=== PATIENT | male | born 1945 | race Caucasian/White ===

== ENCOUNTER 2017-10-15 13:57 | Observation (INO) | payer MEDICARE ==
[2017-10-15] MEDS ORDERED: ASPIRIN 81 MG PO STA (14:13)
--- NOTE | 2017-10-15 14:13 | ED ---
Chest Pain HPI - General Chief Complaint: Chest Pain Stated Complaint: Chest pain Time Seen by Provider: 10/15/17 14:13 Source: patient Mode of arrival: wheelchair Limitations: no limitations - Related Data Home Medications Medication Instructions Recorded Confirmed Aspirin EC [Ecotrin Low Dose] 81 mg PO DAILY 10/15/17 10/15/17 Losartan [Cozaar] 25 mg PO DAILY 10/15/17 10/15/17 Metoprolol Tartrate [Lopressor] 25 mg PO DAILY 10/15/17 10/15/17 Nitroglycerin Sl Tabs [Nitrostat] 0.4 mg SUBLINGUAL Q5M PRN 10/15/17 10/15/17 Prasugrel [Effient] 10 mg PO DAILY 10/15/17 10/15/17 Rosuvastatin [Crestor] 20 mg PO DAILY 10/15/17 10/15/17 Allergies Allergy/AdvReac Type Severity Reaction Status Date / Time atorvastatin [From Lipitor] Allergy Unknown Verified 10/15/17 14:40 diphenhydramine HCl Allergy Unknown Verified 10/15/17 14:40 [From Benadryl] Penicillins Allergy Unknown Verified 10/15/17 14:40 Review of Systems ROS Statement: Those systems with pertinent positive or pertinent negative responses have been documented in the HPI. ROS Other: All systems not noted in ROS Statement are negative. EKG Findings - EKG Comments: EKG Findings:: Twelve-lead EKG shows ventricular rate 60 bpm, there are pacer spikes, the QRS Compazine normal, no ST elevation or depression, interpreted by me as atrial paced rhythm. Past Medical History Past Medical History: Coronary Artery Disease (CAD), GERD/Reflux History of Any Multi-Drug Resistant Organisms: None Reported Past Surgical History: Heart Catheterization, Heart Catheterization With Stent, Hernia Repair, Pacemaker Past Psychological History: No Psychological Hx Reported Smoking Status: Former smoker Past Alcohol Use History: Occasional Past Drug Use History: None Reported General Exam Limitations: no limitations Course Vital Signs 10/15/17 14:02 Temperature 97.9 F Pulse Rate 60 Respiratory 20 Rate Blood Pressure 148/68 O2 Sat by Pulse 95 Oximetry Chest Pain MDM - Core Measures AMI Core Measures Followed: Yes - MDM Patient presents with chest pain. His story is very concerning for acute coronary syndrome. He will be admitted to the hospital. I will consult cardiology. Disposition Clinical Impression: Chest pain Disposition: ADMITTED IP TO THIS HOSP Condition: Fair Instructions: Chest Pain (ED) Is patient prescribed a controlled substance at d/c from ED?: No Referrals: Yefri Frankel MD [Primary Care Provider] - 1-2 days Time of Disposition: 16:04
[2017-10-15 14:37] LABS: Basophils % (A) 0 %; Eosinophils # (A) 0.2 k/uL (0-0.7); Eosinophils % (A) 3 %; HCT 43.2 % (39.0-53.0); HGB 14.8 gm/dL (13.0-17.5); Lymphocytes # (A) 2.3 k/uL (1.0-4.8); Lymphocytes % (A) 38 %; MCH 29.9 pg (25.0-35.0); MCHC 34.3 g/dL (31.0-37.0); MCV 87.2 fL (80.0-100.0); Mean Platelet Volume 7.4; Monocytes # (A) 0.5 k/uL (0-1.0); Monocytes % (A) 8 %; Neutrophils # (A) 2.9 k/uL (1.3-7.7); Neutrophils % (A) 48 %; Platelet Count 151 k/uL (150-450); RBC 4.96 m/uL (4.30-5.90); RDW 12.5 % (11.5-15.5); WBC 6.1 k/uL (3.8-10.6)
[2017-10-15 14:50] LABS: ALT 39 U/L (21-72); AST 35 U/L (17-59); Albumin 4.4 g/dL (3.5-5.0); Alkaline Phosphatase 63 U/L (38-126); Anion Gap 13 mmol/L; Blood Urea Nitrogen 18 mg/dL (9-20); Carbon Dioxide 26 mmol/L (22-30); Chloride 105 mmol/L (98-107); Glucose 87 mg/dL (74-99); Lipase 110 U/L (23-300); Magnesium 1.8 mg/dL (1.6-2.3); Potassium 4.4 mmol/L (3.5-5.1); Sodium 144 mmol/L (137-145); Total Bilirubin 0.3 mg/dL (0.2-1.3); Total Protein 7.1 g/dL (6.3-8.2)
[2017-10-15 14:52] LABS: INR 1.1 (<1.2); Partial Thromboplastin Time 23.7 sec (22.0-30.0); Prothrombin Time 10.5 sec (9.0-12.0)
--- NOTE | 2017-10-15 14:55 | XR ---
EXAMINATION TYPE: XR chest 2V DATE OF EXAM: 10/15/2017 COMPARISON: NONE TECHNIQUE: PA and lateral views submitted. HISTORY: Chest pain FINDINGS: The lungs are clear and there is no pneumothorax, pleural effusion, or focal pneumonia. Cardiac dev ice seen with calcified granuloma left lower lobe. No overt failure. Arthropathy of the shoulders. Hy pertrophic and degenerative change spine. IMPRESSION: 1. No acute process.
[2017-10-15] MEDS ORDERED: TEMAZEPAM 15 MG CAP PO PRN (16:04)
[2017-10-15] MEDS ORDERED: NALOXONE 0.4 MG/ML 1 ML VIAL IV PRN (16:04)
[2017-10-15] MEDS ORDERED: traMADol 50 MG TAB PO PRN (16:04)
[2017-10-15] MEDS ORDERED: NITROGLYCERIN SL TABS 0.4 MG TAB SUBLINGUAL PRN (16:06)
[2017-10-15 16:24] VITALS: RESP 18
--- NOTE | 2017-10-15 18:51 | HP ---
HISTORY AND PHYSICAL CHIEF COMPLAINT: A 72-year-old white male with chest pain. HISTORY OF PRESENT ILLNESS: 72-year-old white male presents to the hospital with chest pain similar to prior chest pain he had while in the hospital with prior heart catheterizations with stents. He is admitted to rule out myocardial infarction. No tachypnea, no tachycardia. No hemoptysis. No significant shortness of breath. HOME MEDICINES: Include Cozaar 25 daily, Ecotrin 81 mg daily, Lopressor 25 daily, and Nitrostat 0.4 mg sublingual p.r.n., Effient 10 mg daily. Crestor 20 mg daily. ALLERGIES: LIPITOR, DIPHENHYDRAMINE, PENICILLIN. REVIEW OF SYSTEMS: Fourteen point review of systems negative except for mentioned in HPI. EKG sinus rhythm, no ST depression or elevation. PAST MEDICAL HISTORY: Coronary artery disease. GERD. He has heart catheterization with stents, pacemaker, former smoker. PHYSICAL EXAMINATION: Temp 97.9, pulse 60, respiratory 18 to 20, blood pressure 148/60 O2 95% on room air. Cardiovascular S1, S2. LUNGS: Transmitted upper airway sounds. Hematology negative Homans. Psych fair mood and affect. Neurologic: Alert and oriented x3. Psych fair mood affect. Vascular: Normal dorsalis pedis, posterior radial pulse. ASSESSMENT: 1. Atypical chest pain. 2. History of hypertension. 3. Dyslipidemia. 4. Gastroesophageal reflux disease. 5. Coronary artery disease. PLAN: Rule out myocardial infarction. Cardiology consult. Possible discharge. Home once cleared by Cardiology. Rule out . Rule out PE. Chest x-ray was negative. Check thyroids. Risk factor modifications ordered and home medicines will be continued. MMODL / IJN: [id number] /
[2017-10-15] MEDS: FAMOTIDINE 20 MG TAB PO SCH (19:53)
[2017-10-16] MEDS ORDERED: LOSARTAN 25 MG TAB PO SCH (09:00)
[2017-10-16] MEDS ORDERED: NON-FORMULARY DRUG (Rosuvastatin 20 MG) PO SCH (09:00)
[2017-10-16] MEDS ORDERED: ASPIRIN 81 MG PO SCH (09:00)
[2017-10-16] MEDS ORDERED: PRASUGREL 10 MG TAB PO SCH (09:00)
[2017-10-16] MEDS ORDERED: METOPROLOL TARTRATE 25 MG TAB PO SCH (09:00)
--- NOTE | 2017-10-16 09:28 | P.CRDCN ---
History of Present Illness Consult date: 10/16/17 History of present illness: Mr. Browne is a pleasant 72-year-old [place] male past medical history significant for coronary artery disease s/p stenting 2 months ago in [place], gastroesophageal reflux disease, sleep apnea, hypertension and dyslipidemia. We 've asked to see him in consultation for complaint of chest pain. 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 However he was in town yesterday at the store when he started developing a discomfort in the left precordial region. The discomfort is described as a warm prickly sensation underneath the left breast radiating around into the midsternal region. No specific aggravating or alleviating factors. Along with the pain he has mild shortness of breath and dizziness. Each episode lasts less than a minute and goes away on its own. He states he has a total of 3 stents in his heart, we will obtain those records from [place]. EKG atrial paced. Chest xray negative for an acute cardiopulmonary process. Laboratory data reviewed, hemoglobin 14.8, platelets 151, d-dimer 0.33, sodium 144, potassium 4.4, magnesium 1.8, creatinine 0.8, cardiac enzymes negative 3, LDL 33. Current cardiac medications include rosuvastatin 20 mg daily, Effient 10 mg daily, metoprolol 25 mg daily, losartan 25 mg daily and aspirin 81 mg daily. Review of Systems At the time of my exam: CONSTITUTIONAL: Denies fever. Denies chills. EYES: Denies blurred vision. Denies vision changes. Denies eye pain. EARS, NOSE, MOUTH & THROAT: Denies headache. Denies sore throat. Denies ear pain. CARDIOVASCULAR: Denies chest pain. Denies shortness of breath. Denies orthopnea. Denies PND. Denies palpitations. RESPIRATORY: Denies cough. GASTROINTESTINAL: Denies abdominal pain. Denies diarrhea. Denies constipation. Denies nausea. Denies vomiting. MUSCULOSKELETAL: Denies myalgias. INTEGUMENTARY: Denies pruitis. Denies rash. NEUROLOGIC: Denies numbness. Denies tingling. Denies weakness. PSYCHIATRIC: Denies anxiety. Denies depression. ENDOCRINE: Denies fatigue. Denies weight change. Denies polydipsia. Denies polyurina. GENITOURINARY: Denies burning, hematuria or urgency with micturation. HEMATOLOGIC: Denies history of anemia. Denies bleeding. Past Medical History Past Medical History: Coronary Artery Disease (CAD), GERD/Reflux, Hyperlipidemia , Hypertension, Sleep Apnea/CPAP/BIPAP Additional Past Medical History / Comment(s): hiatal hernia, past peptic ulcer, arthritis,"lung nodules" History of Any Multi-Drug Resistant Organisms: None Reported Past Surgical History: Heart Catheterization, Heart Catheterization With Stent, Hernia Repair, Pacemaker Additional Past Surgical History / Comment(s): bronchocospy, inguinal hernia repair, egd/colonoscopy. cataracts-lens implants Past Anesthesia/Blood Transfusion Reactions: No Reported Reaction Date of Last Stent Placement:: unk Type of Cardiac Device: Permanent Pacemaker Device Placement Date:: unk Smoking Status: Former smoker - Past Family History Mother Family Medical History: Congestive Heart Failure (CHF) Additional Family Medical History / Comment(s): osteoporosis Father History Unknown: Yes Additional Family Medical History / Comment(s): "father was murdered" Medications and Allergies Home Medications Medication Instructions Recorded Confirmed Type Aspirin EC [Ecotrin Low Dose] 81 mg PO DAILY 10/15/17 10/15/17 History Losartan [Cozaar] 25 mg PO DAILY 10/15/17 10/15/17 History Metoprolol Tartrate [Lopressor] 25 mg PO DAILY 10/15/17 10/15/17 History Nitroglycerin Sl Tabs [Nitrostat] 0.4 mg SUBLINGUAL Q5M PRN 10/15/17 10/15/17 History Prasugrel [Effient] 10 mg PO DAILY 10/15/17 10/15/17 History Rosuvastatin [Crestor] 20 mg PO DAILY 10/15/17 10/15/17 History Allergies Allergy/AdvReac Type Severity Reaction Status Date / Time atorvastatin [From Lipitor] Allergy Unknown Verified 10/15/17 14:40 diphenhydramine HCl Allergy Unknown Verified 10/15/17 14:40 [From Benadryl] Penicillins Allergy Unknown Verified 10/15/17 14:40 Physical Exam Vitals: Vital Signs Temp Pulse Pulse Resp BP BP Pulse Ox 10/16/17 04:00 97.7 F 61 18 128/61 95 10/16/17 00:00 97.8 F 58 L 18 116/62 94 L 10/15/17 20:00 18 10/15/17 18:36 18 10/15/17 18:25 97.6 F 60 18 149/70 95 10/15/17 17:11 98.7 F 65 18 143/73 98 10/15/17 16:20 60 18 145/67 96 10/15/17 14:02 97.9 F 60 20 148/68 95 Intake and Output 10/15/17 10/16/17 10/16/17 22:59 06:59 14:59 Intake Total 240 Balance 240 Intake: Oral 240 Other: Voiding Method Toilet Toilet # Voids 1 Weight 100.8 kg Blood pressure 124/67 heart rate 68 afebrile obtaining oxygen saturation on room air GENERAL: This is a 72-year-old male in no apparent distress at the time of my examination. HEENT: Head is atraumatic, normocephalic. Pupils are equal, round. Sclerae anicteric. Conjunctivae are clear. Mucous membranes of the mouth are moist. Neck is supple. There is no jugular venous distention. No carotid bruit is heard. LUNGS: Clear to auscultation no wheezes, rales or rhonchi. No chest wall tenderness is noted on palpation or with deep breathing. HEART: Regular rate and rhythm without murmurs, rubs or gallops. S1 and S2 heard. ABDOMEN: Soft, nontender. Bowel sounds are heard. No organomegaly noted. EXTREMITIES: No evidence of peripheral edema and no calf tenderness noted. VASCULAR: Radial and dorsalis pedis pulses palpated, no evidence of clubbing. NEUROLOGIC: Patient is awake, alert and oriented x3. Results 10/15/17 14:26 10/15/17 14:26 Cardiac Enzymes 10/15/17 10/15/17 10/15/17 Range/Units 14:26 14:26 14:26 WBC 6.1 (3.8-10.6) k/uL RBC 4.96 (4.30-5.90) m/uL Hgb 14.8 (13.0-17.5) gm/dL Hct 43.2 (39.0-53.0) % MCV 87.2 (80.0-100.0) fL MCH 29.9 (25.0-35.0) pg MCHC 34.3 (31.0-37.0) g/dL RDW 12.5 (11.5-15.5) % Plt Count 151 (150-450) k/uL Neutrophils % 48 % Lymphocytes % 38 % Monocytes % 8 % Eosinophils % 3 % Basophils % 0 % Neutrophils # 2.9 (1.3-7.7) k/uL Lymphocytes # 2.3 (1.0-4.8) k/uL Monocytes # 0.5 (0-1.0) k/uL Eosinophils # 0.2 (0-0.7) k/uL Basophils # 0.0 (0-0.2) k/uL PT (9.0-12.0) sec INR (<1.2) APTT (22.0-30.0) sec D-Dimer (<0.60) mg/L FEU Sodium 144 (137-145) mmol/L Potassium 4.4 (3.5-5.1) mmol/L Chloride 105 (98-107) mmol/L Carbon Dioxide 26 (22-30) mmol/L Anion Gap 13 mmol/L BUN 18 (9-20) mg/dL Creatinine 0.80 (0.66-1.25) mg/dL Est GFR (CKD-EPI)AfAm >90 (>60 ml/min/1.73 sqM) Est GFR (CKD-EPI)NonAf >90 (>60 ml/min/1.73 sqM) Glucose 87 (74-99) mg/dL Calcium 9.0 (8.4-10.2) mg/dL Magnesium 1.8 (1.6-2.3) mg/dL Total Bilirubin 0.3 (0.2-1.3) mg/dL AST 35 (17-59) U/L ALT 39 (21-72) U/L Alkaline Phosphatase 63 (38-126) U/L Troponin I (0.000-0.034) ng/mL NT-Pro-B Natriuret Pep 162 pg/mL Total Protein 7.1 (6.3-8.2) g/dL Albumin 4.4 (3.5-5.0) g/dL Triglycerides (<150) mg/dL Cholesterol (<200) mg/dL LDL Cholesterol, Calc (0-99) mg/dL HDL Cholesterol (40-60) mg/dL Lipase 110 (23-300) U/L TSH (0.465-4.680) mIU/L 10/15/17 10/15/17 10/15/17 Range/Units 14:26 14:26 14:26 WBC (3.8-10.6) k/uL RBC (4.30-5.90) m/uL Hgb (13.0-17.5) gm/dL Hct (39.0-53.0) % MCV (80.0-100.0) fL MCH (25.0-35.0) pg MCHC (31.0-37.0) g/dL RDW (11.5-15.5) % Plt Count (150-450) k/uL Neutrophils % % Lymphocytes % % Monocytes % % Eosinophils % % Basophils % % Neutrophils # (1.3-7.7) k/uL Lymphocytes # (1.0-4.8) k/uL Monocytes # (0-1.0) k/uL Eosinophils # (0-0.7) k/uL Basophils # (0-0.2) k/uL PT 10.5 (9.0-12.0) sec INR 1.1 (<1.2) APTT 23.7 (22.0-30.0) sec D-Dimer (<0.60) mg/L FEU Sodium (137-145) mmol/L Potassium (3.5-5.1) mmol/L Chloride (98-107) mmol/L Carbon Dioxide (22-30) mmol/L Anion Gap mmol/L BUN (9-20) mg/dL Creatinine (0.66-1.25) mg/dL Est GFR (CKD-EPI)AfAm (>60 ml/min/1.73 sqM) Est GFR (CKD-EPI)NonAf (>60 ml/min/1.73 sqM) Glucose (74-99) mg/dL Calcium (8.4-10.2) mg/dL Magnesium (1.6-2.3) mg/dL Total Bilirubin (0.2-1.3) mg/dL AST (17-59) U/L ALT (21-72) U/L Alkaline Phosphatase (38-126) U/L Troponin I <0.012 (0.000-0.034) ng/mL NT-Pro-B Natriuret Pep pg/mL Total Protein (6.3-8.2) g/dL Albumin (3.5-5.0) g/dL Triglycerides 209 H (<150) mg/dL Cholesterol 109 (<200) mg/dL LDL Cholesterol, Calc 33 (0-99) mg/dL HDL Cholesterol 34 L (40-60) mg/dL Lipase (23-300) U/L TSH 1.930 (0.465-4.680) mIU/L 10/15/17 10/15/17 10/16/17 Range/Units 14:26 20:17 02:24 WBC (3.8-10.6) k/uL RBC (4.30-5.90) m/uL Hgb (13.0-17.5) gm/dL Hct (39.0-53.0) % MCV (80.0-100.0) fL MCH (25.0-35.0) pg MCHC (31.0-37.0) g/dL RDW (11.5-15.5) % Plt Count (150-450) k/uL Neutrophils % % Lymphocytes % % Monocytes % % Eosinophils % % Basophils % % Neutrophils # (1.3-7.7) k/uL Lymphocytes # (1.0-4.8) k/uL Monocytes # (0-1.0) k/uL Eosinophils # (0-0.7) k/uL Basophils # (0-0.2) k/uL PT (9.0-12.0) sec INR (<1.2) APTT (22.0-30.0) sec D-Dimer 0.33 (<0.60) mg/L FEU Sodium (137-145) mmol/L Potassium (3.5-5.1) mmol/L Chloride (98-107) mmol/L Carbon Dioxide (22-30) mmol/L Anion Gap mmol/L BUN (9-20) mg/dL Creatinine (0.66-1.25) mg/dL Est GFR (CKD-EPI)AfAm (>60 ml/min/1.73 sqM) Est GFR (CKD-EPI)NonAf (>60 ml/min/1.73 sqM) Glucose (74-99) mg/dL Calcium (8.4-10.2) mg/dL Magnesium (1.6-2.3) mg/dL Total Bilirubin (0.2-1.3) mg/dL AST (17-59) U/L ALT (21-72) U/L Alkaline Phosphatase (38-126) U/L Troponin I <0.012 <0.012 (0.000-0.034) ng/mL NT-Pro-B Natriuret Pep pg/mL Total Protein (6.3-8.2) g/dL Albumin (3.5-5.0) g/dL Triglycerides (<150) mg/dL Cholesterol (<200) mg/dL LDL Cholesterol, Calc (0-99) mg/dL HDL Cholesterol (40-60) mg/dL Lipase (23-300) U/L TSH (0.465-4.680) mIU/L Coagulation 10/15/17 Range/Units 14:26 PT 10.5 (9.0-12.0) sec APTT 23.7 (22.0-30.0) sec Lipids 10/15/17 Range/Units 14:26 Triglycerides 209 H (<150) mg/dL Cholesterol 109 (<200) mg/dL HDL Cholesterol 34 L (40-60) mg/dL CBC 10/15/17 Range/Units 14:26 WBC 6.1 (3.8-10.6) k/uL RBC 4.96 (4.30-5.90) m/uL Hgb 14.8 (13.0-17.5) gm/dL Hct 43.2 (39.0-53.0) % Plt Count 151 (150-450) k/uL Comprehensive Metabolic Panel 10/15/17 Range/Units 14:26 Sodium 144 (137-145) mmol/L Potassium 4.4 (3.5-5.1) mmol/L Chloride 105 (98-107) mmol/L Carbon Dioxide 26 (22-30) mmol/L BUN 18 (9-20) mg/dL Creatinine 0.80 (0.66-1.25) mg/dL Glucose 87 (74-99) mg/dL Calcium 9.0 (8.4-10.2) mg/dL AST 35 (17-59) U/L ALT 39 (21-72) U/L Alkaline Phosphatase 63 (38-126) U/L Total Protein 7.1 (6.3-8.2) g/dL Albumin 4.4 (3.5-5.0) g/dL Current Medications Generic Name Dose Route Start Last Admin Trade Name Freq PRN Reason Stop Dose Admin Aspirin 81 mg 10/16/17 09:00 Aspirin PO DAILY [facility] Famotidine 20 mg 10/15/17 21:00 10/15/17 19:53 Pepcid PO 20 mg BID DAVID Administration Losartan Potassium 25 mg 10/16/17 09:00 Cozaar PO DAILY [facility] Metoprolol Tartrate 25 mg 10/16/17 09:00 Lopressor PO DAILY [facility] Naloxone HCl 0.2 mg 10/15/17 16:04 Narcan IV Q2M PRN Opioid Reversal Nitroglycerin 0.4 mg 10/15/17 16:06 Nitrostat SUBLINGUAL Q5M PRN Angina Non-Formulary Medication 20 mg 10/16/17 09:00 Rosuvastatin PO DAILY [facility] Prasugrel 10 mg 10/16/17 09:00 Effient PO DAILY [facility] Temazepam 15 mg 10/15/17 16:04 Restoril PO HS PRN Insomnia Tramadol HCl 50 mg 10/15/17 16:04 Ultram PO Q6H PRN Moderate Pain Intake and Output 10/15/17 10/16/17 10/16/17 22:59 06:59 14:59 Intake Total 240 Balance 240 Intake: Oral 240 Other: Voiding Method Toilet Toilet # Voids 1 Weight 100.8 kg 10/15/17 14:26 10/15/17 14:26 Assessment and Plan Assessment: ASSESSMENT 1. Chest pain, atypical. An acute coronary event has been ruled out. 2. History of coronary artery disease with recent angioplasty in [place] 3. Dyslipidemia 4. Hypertension 5. Status post permanent pacemaker implantation PLAN An acute coronary event has been ruled out. We will obtain records from [place] to evaluate his recent catheterization and systolic function. Increase activity and ambulation in the halls. Stable from a cardiac perspective. Stress test has been scheduled in the office for him tomorrow at 11:00. Thank you kindly for this consultation. The above impression and plan of care have been discussed and directed by the signing physician. Katie Lui, nurse practitioner, acting as scribe for signing physician.
[2017-10-16] MEDS: FAMOTIDINE 20 MG TAB PO SCH (10:18)
[2017-10-16 11:45] VITALS: BP 120/59; PULSE 59; TEMP 97.5
== END 2017-10-16 14:00 | disposition home or self-care (01) ==
LOC: EC 13:57 → 3OBS 16:04
PROVIDERS: ADMIT Family Medicine; ATTEND Family Medicine
DX: R07.89 Other chest pain (principal); I25.10 Atherosclerotic heart disease of native coronary artery without angina pectoris; K21.9 Gastro-esophageal reflux disease without esophagitis; G47.30 Sleep apnea, unspecified; I10 Essential (primary) hypertension; E78.5 Hyperlipidemia, unspecified; R42 Dizziness and giddiness; R06.02 Shortness of breath; R91.1 Solitary pulmonary nodule; Z79.82 Long term (current) use of aspirin; Z79.899 Other long term (current) drug therapy; Z88.0 Allergy status to penicillin; Z88.8 Allergy status to other drugs, medicaments and biological substances; Z95.5 Presence of coronary angioplasty implant and graft; Z95.0 Presence of cardiac pacemaker; Z87.891 Personal history of nicotine dependence; Z87.11 Personal history of peptic ulcer disease; Z98.42 Cataract extraction status, left eye; Z98.41 Cataract extraction status, right eye; Z96.1 Presence of intraocular lens; Z82.62 Family history of osteoporosis; Z82.49 Family history of ischemic heart disease and other diseases of the circulatory system
CPT/HCPCS: 99285 ×2; 36415; 93005; 85379; 83880; 80061; 80053; 84443; 83690; 83735; 84484 ×2; 85025; 85610; 85730; 71046; G0378 ×2

== ENCOUNTER → 2023-08-11 | Outpatient (CLI) | payer MEDICARE ==
[2023-08-11 15:15] LABS: HCT 46.2 % (39.6-50.0); HGB 15.5 g/dL (13.0-17.0); MCH 30.2 pg (27.0-32.0); MCHC 33.5 g/dL (32.0-37.0); MCV 90.1 FL (80.0-97.0); Mean Platelet Volume 11.3 FL (9.5-12.2); NRBC Per 100 WBC 0 X 10*3/uL (0.00-0.01); Platelet Count 143 X 10*3/uL (140-440); RBC 5.13 X 10*6/uL (4.40-5.60); RDW 12.8 % (11.5-14.5); WBC 7.56 X 10*3/uL (4.50-10.00)
[2023-08-11 15:43] LABS: ALT 23 U/L (10-49); AST 25 U/L (14-35); Albumin 4.6 g/dL (3.8-4.9); Albumin/Globulin Ratio 1.59 Ratio (1.60-3.17); Alkaline Phosphatase 64 U/L (41-126); Blood Urea Nitrogen 11.8 mg/dL (9.0-27.0); Calcium 9.4 mg/dL (8.7-10.3); Carbon Dioxide 26.9 mmol/L (21.6-31.8); Chloride 105 mmol/L (96-109); Chol/HDL Ratio 2.94 Ratio; Globulin 2.9 g/dL (1.6-3.3); Glucose 89 mg/dL (70-110); LDL Cholesterol,Calculated 48.1 mg/dL (0.0-131.0); Potassium 4.4 mmol/L (3.5-5.5); Sodium 143 mmol/L (135-145); T4, Free (Free Thyroxine) 1.01 ng/dL (0.80-1.80); Total Bilirubin 0.4 mg/dL (0.3-1.2); Total Protein 7.5 g/dL (6.2-8.2)
== END | disposition home or self-care (01) ==
LOC: LABWHC1 11:34
PROVIDERS: ATTEND Internal Medicine
DX: E78.00 Pure hypercholesterolemia, unspecified (principal); K22.719 Barrett's esophagus with dysplasia, unspecified; R53.83 Other fatigue; R73.9 Hyperglycemia, unspecified
CPT/HCPCS: 36415; 80053; 80061; 83036; 84439; 84443; 85027

== ENCOUNTER 2023-09-16 07:30 | Day surgery (SDC) | payer MEDICARE ==
[2023-09-16] MEDS: diazePAM 5 MG TAB PO STA (08:32)
[2023-09-16 08:45] VITALS: TEMP 97.7
[2023-09-16 10:00] VITALS: RESP 16
--- NOTE | 2023-09-16 10:32 | FL ---
EXAMINATION TYPE: FL myelogram lumbosacral DATE OF EXAM: 09/16/2023 COMPARISON: NONE HISTORY: Back pain Informed consent was obtained and all the patient's questions were answered. The L3-L4 level was loc alized under fluoroscopy. Standard sterile technique was utilized as well as appropriate local anest hesia 1% Lidocaine and sodium bicarbonate. Spinal needle was introduced into the thecal sac under fl uoroscopic guidance and 7 mL's of Isovue 200 was injected. The patient tolerated the procedure well and left the department in stable condition. CT myelography is to follow. IMPRESSION: Successful myelography lumbar spine. CT to follow.
[2023-09-16 14:53] VITALS: BP 124/61; PULSE 66
--- NOTE | 2023-09-23 10:20 | CT ---
EXAMINATION TYPE: CT lumbar spine w con CT DLP: 1287 mGycm, Automated exposure control for dose reduction was used. DATE OF EXAM: 09/16/2023 10:05 AM COMPARISON: Outside lumbar MRI 04/03/2018. CLINICAL INDICATION:Male, 78 years old with history of M47.816, M54.5; PHH, lumbar spondylosis, low b ack pain TECHNIQUE: CT of the lumbar spine was performed after myelogram injection performed just prior by Dr. Andrew. M ultiplanar soft tissue and bone windows were obtained and reviewed. Contrast used: Please refer to myelogram injection report for description of contrast and dose. FINDINGS: There are 5 lumbar type vertebral bodies with normal alignment. Vertebral body heights are maintained and no fracture or destructive lesion is seen. There are moderate degenerative disc changes at essentially every level, with mild to moderate facet arthrosis at multiple levels, worsening in severity inferiorly. Some of the spinous processes includi ng L3-L5, are block like and articulating compatible with Baastrup's sign. Discs: T12-L1: Conus medullaris terminates normally at the T12-L1 level without evidence of enlargement or c ompression. Mild spinal canal stenosis. No significant neural foraminal stenosis. L1-L2: Mild canal stenosis, no significant neural foraminal stenosis. L2-L3: Combination disc osteophyte complex and facet disease causes mild to moderate circumferential canal stenosis and [id number] bilateral neural foraminal stenosis. L3-L4: Disc osteophyte complex and moderate to severe facet arthrosis results in moderate to severe c ircumferential canal stenosis with decreased CSF space around the descending nerve roots. Moderate fo raminal stenoses. L4-L5: Moderate to severe posterior disc osteophyte complex and bilateral facet arthrosis together ca use severe spinal canal stenosis, with complete obliteration of the CSF space within the thecal sac. Compression of any to all of the descending nerve roots may be present. Mild to moderate bilateral fo raminal stenoses. L5-S1: Combination of disc osteophyte complex and facet disease causes moderate spinal canal stenosis , and decreased visualization of the CSF space within the thecal sac but is not obliterated. Other: Visualized sacrum is intact. Moderate degenerative changes of the SI joints with partial osseo us bridging. Moderate to heavy calcification of the abdominal aorta and branches. No evidence of AAA. IMPRESSION: 1. Multilevel lumbar spondylosis, with various degrees of stenosis as above. 2. This appears most severe at L4-L5, where there is severe spinal canal stenosis, and complete oblit eration of the CSF space within the thecal sac. Compression of any to all of the descending nerve gus ts may be present. 3. Baastrup's sign is present. The patient may have difficulties with lumbar extension, and/or low ba ck pain (which is classically aggravated by extension and relieved by flexion).
== END 2023-09-16 14:47 | disposition home or self-care (01) ==
LOC: RADPROMAIN 07:30
PROVIDERS: ATTEND Orthopaedic Surgery
DX: M54.50 Low back pain, unspecified (principal)
CPT/HCPCS: 62304; 72132; Q9966

== ENCOUNTER 2024-12-22 11:25 | Day surgery (SDC) | payer MEDICARE ==
--- NOTE | 2024-12-21 21:26 | P.GSHP ---
History of Present Illness H&P Date: 12/21/24 Chief Complaint: Elevated PSA level The patient is a 79-year-old white male whose PSA level cristina from 3.17 in April 2023 to 5.51 in August 2024. He has no family history of prostate cancer. He reports moderate obstructive voiding symptoms. Digital rectal examination reveals left-sided prostatic firmness. He now comes for prostate ultrasound with biopsies. 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 fell 4-5 days ago coming down off a ladder & fractured a rib- states Stefani @ urology was notified. History of Any Multi-Drug Resistant Organisms: None Reported Past Surgical History: Heart Catheterization, Heart Catheterization With Stent, Hernia Repair, Pacemaker Additional Past Surgical History / Comment(s): bronchoscopy, inguinal hernia repair, egd/colonoscopy. cataracts-lens implants, 6 cardiac stents placed Past Anesthesia/Blood Transfusion Reactions: No Reported Reaction Additional Past Anesthesia/Blood Transfusion Reaction / Comment(s): had ablation for nichole's disease & trouble urinating and having bowel movement afterwards. Date of Last Stent Placement:: 2019 Type of Cardiac Device: Permanent Pacemaker Device Placement Date:: 01/29/2017 Smoking Status: Former smoker - Past Family History Mother Family Medical History: Congestive Heart Failure (CHF) Additional Family Medical History / Comment(s): osteoporosis Father History Unknown: Yes Additional Family Medical History / Comment(s): "father was murdered" Sister(s) Family Medical History: Cancer Additional Family Medical History / Comment(s): colon ca Brother(s) Family Medical History: Cancer Additional Family Medical History / Comment(s): lung ca Medications and Allergies Home Medications Medication Instructions Recorded Confirmed Type Aspirin EC [Ecotrin Low Dose] 81 mg PO DAILY 10/15/17 12/20/24 History Losartan [Cozaar] 25 mg PO DAILY 10/15/17 12/20/24 History Metoprolol Tartrate [Lopressor] 25 mg PO BID 10/15/17 12/20/24 History Nitroglycerin Sl Tabs [Nitrostat] 0.4 mg SUBLINGUAL Q5M PRN 10/15/17 12/20/24 History Rosuvastatin [Crestor] 20 mg PO DAILY 10/15/17 12/20/24 History Pantoprazole Sodium 40 mg PO DAILY 12/20/24 12/20/24 History Allergies Allergy/AdvReac Type Severity Reaction Status Date / Time atorvastatin [From Lipitor] Allergy Unknown Verified 12/20/24 15:50 diphenhydramine HCl Allergy Unknown Verified 12/20/24 15:50 [From Benadryl] Penicillins Allergy Unknown Verified 12/20/24 15:50 Surgical - Exam - General well developed, well nourished, no distress - Respiratory normal respiratory effort - Genitourinary normal penis with no external lesions, testicles non-tender - Rectum Rectum: normal sphincter tone, no masses, other (Prostate mildly enlarged with left-sided firmness, no nodularity.) - Psychiatric oriented to time, oriented to person, oriented to place, speech is normal, memory intact Assessment and Plan (1) Elevated prostate specific antigen [PSA] Status: Acute Code(s): R97.20 - ELEVATED PROSTATE SPECIFIC ANTIGEN [PSA] SNOMED Code(s): 171789457 Plan: The patient will undergo transrectal ultrasound of the prostate with biopsies. The procedure has been reviewed in detail with the patient. He has been made aware of potential risks, which include anesthesia, bleeding, and infection. He is also aware that a negative biopsy does not completely rule out prostate cancer.
[2024-12-22] MEDS: IV FLUID CONTINUATION 1,000 ML IV ONE (11:55)
[2024-12-22 12:11] VITALS: TEMP 97.2
[2024-12-22] MEDS: LACTATED RINGERS 1,000 ML IV SCH (12:28)
[2024-12-22] MEDS: GENTAMICIN 40 MG/ML 2 ML VIAL IM PRN (12:29)
[2024-12-22] MEDS ORDERED: PROPOFOL 10 MG/ML 20 ML VIAL IV ONE (13:42)
--- NOTE | 2024-12-22 14:07 | P.OP ---
Date of Procedure: 12/22/24 Preoperative Diagnosis: Elevated PSA level Postoperative Diagnosis: Same Procedure(s) Performed: Transrectal ultrasound of the prostate with ultrasound-guided biopsies Anesthesia: MAC Surgeon: Mike Marshall Estimated Blood Loss (ml): 5 IV fluids (ml): 300 Pathology: other (Prostate biopsies) Condition: stable Disposition: PACU Indications for Procedure: The patient is a 79-year-old white male whose PSA level cristina from 3.17 in April 2023 to 5.51 in August 2024. He has no family history of prostate cancer. He reports moderate obstructive voiding symptoms. Digital rectal examination reveals left-sided prostatic firmness. He now comes for prostate ultrasound with biopsies. Operative Findings: Left-sided prostatic firmness. Left mid-base hypoechoic lesion measuring 21.2 mm in maximal diameter. Description of Procedure: The patient was taken to the operating room and placed in the left lateral decubitus position. SUDHEER revealed the prostate to be mildly enlarged with firmness noted at the left mid gland. The [place] transrectal ultrasound probe was placed intrarectally. The prostate was imaged in both the axial and sagittal planes, revealing a prostate volume of 33.23 cc mL. The bladder appeared normal. The seminal vesicles appeared normal. The central zone appeared normal. The transitional zone contained some calcifications. Within the left peripheral zone at the mid base level was a hypoechoic lesion measuring 21.2 mm in maximal diameter. Using the Biopty gun, 12 biopsies of the peripheral zone were obtained utilizing a standard template. Once the procedure was completed, the ultrasound probe was removed. The patient tolerated the procedure well was taken to the recovery room stable condition.
[2024-12-22 14:10] VITALS: RESP 18
[2024-12-22 14:27] VITALS: BP 145/71; PULSE 65
== END 2024-12-22 14:46 | disposition home or self-care (01) ==
LOC: OR 11:25
PROVIDERS: ATTEND Urology
DX: C61 Malignant neoplasm of prostate (principal); R35.1 Nocturia; I25.10 Atherosclerotic heart disease of native coronary artery without angina pectoris; I10 Essential (primary) hypertension; E78.5 Hyperlipidemia, unspecified; M19.90 Unspecified osteoarthritis, unspecified site; G47.30 Sleep apnea, unspecified; Z95.0 Presence of cardiac pacemaker; Z98.890 Other specified postprocedural states; Z95.5 Presence of coronary angioplasty implant and graft; Z87.19 Personal history of other diseases of the digestive system; Z87.891 Personal history of nicotine dependence; Z82.49 Family history of ischemic heart disease and other diseases of the circulatory system; Z82.62 Family history of osteoporosis; Z80.0 Family history of malignant neoplasm of digestive organs; Z80.1 Family history of malignant neoplasm of trachea, bronchus and lung; Z88.8 Allergy status to other drugs, medicaments and biological substances; Z88.0 Allergy status to penicillin; Z79.82 Long term (current) use of aspirin; Z79.899 Other long term (current) drug therapy
CPT/HCPCS: 55700; 88344; 88305; J1580; J2704